=== PATIENT | female | born 1990 | race Caucasian/White ===

== ENCOUNTER → 2019-05-08 11:24 | Outpatient (CLI) | payer OTHER, SELFPAY ==
[2019-05-08 12:00] LABS: Add Manual Diff / Slide Review NO; Basophils Absolute Auto 100 /uL (0-100); Basophils Percent Auto 1.2 % (0-2); Eosinophils Absolute Auto 100 /uL (0-450); Eosinophils Percent Auto 1.2 % (2-4); Hematocrit 38.4 % (36-46); Hemoglobin 13.1 g/dL (12.0-16.0); Lymphocytes Absolute Auto 1700 /uL (1100-4500); Lymphocytes Percent Auto 26.8 % (25-40); Mean Corpuscular Hemoglobin 28.9 PG (26-34); Mean Corpuscular Volume 84.9 fL (80-100); Monocytes Absolute Auto 500 /uL (0-900); Neutrophils Absolute Auto 4000 /uL (1500-7000); Neutrophils Percent Auto 62.8 % (50-75); Platelet Count 262 X10^3/uL (150-400); Red Blood Cell Count 4.52 X10^6/uL (4.0-5.2); Red Cell Distribution Width 13.2 % (11.6-14.8); White Blood Cell Count 6.4 X10^3/uL (4.5-11.0)
[2019-05-08 12:16] LABS: Appearance Urine UA CLEAR; Bilirubin Urine UA NEGATIVE (NEGATIVE); Color Urine UA YELLOW; Glucose Urine UA NEGATIVE (Negative); Ketones Urine UA NEGATIVE (NEGATIVE); Leukocyte Esterase Urine UA NEGATIVE (NEGATIVE); Nitrite Urine UA NEGATIVE (Negative); Occult Blood Urine UA NEGATIVE (Negative); Protein Urine UA NEGATIVE (Negative); Urobilinogen Urine UA 0.2 E.U./dL (0.2)
[2019-05-08 13:57] LABS: HCG Quantitative /Beta subunit 167040 mIU/mL
[2019-05-08 15:15] LABS: Hepatitis B Surface Antigen NEGATIVE s/c (NEGATIVE)
[2019-05-08 15:33] LABS: HIV 1 & 2 Ab/Ag 4th Gen Combo NEGATIVE (NEGATIVE); Hep C Virus Ab w/Reflex Quant NEGATIVE s/c (NEGATIVE)
== END ==
PROVIDERS: Visit Provider Obstetrics & Gynecology
DX: N96 Recurrent pregnancy loss (principal); Z32.01 Encounter for pregnancy test, result positive; Z34.01 Encounter for supervision of normal first pregnancy, first trimester
CPT/HCPCS: 36415; 80055; 81003; 84702; 86787; 86803; 86850; 86900; 86901; 87086; 87389

== ENCOUNTER → 2019-07-04 11:03 | Outpatient (CLI) | payer OTHER, SELFPAY ==
[2019-07-10 10:53] LABS: AFP, Serum 46.3 ng/mL; Calc Gestational Age 15.9; Cigarette Smoker NO; Collection Date 102219; Donated Egg N; Donor Egg Age NOT GIVEN; Estriol, Free 0.64 ng/mL; Inhibin A, Dimeric 175 pg/mL; Maternal Weight 202 lbs; Number of Fetuses 1; Previous Pregnancy Down Syndro N; hCG, MoM 1.71; hCG, Serum 51.8 IU/mL
== END ==
PROVIDERS: Visit Provider Obstetrics & Gynecology
DX: Z34.82 Encounter for supervision of other normal pregnancy, second trimester (principal)
CPT/HCPCS: 36415; 82105; 82677; 84702; 86336

== ENCOUNTER → 2019-08-01 09:04 | Outpatient (CLI) | payer OTHER, SELFPAY ==
--- NOTE | 2019-08-01 09:06 | DI.US.S_ITS ---
PROCEDURE: US OB >= 14 WEEKS FETUS INDICATIONS: ANATOMY OUTSIDE/PRIOR DATING DATA: Last menstrual period (LMP): 03/14/19. LMP-based estimated date of delivery (GOLD): 12/19/19. First dating scan (date and location): 05/08/19. Estimated date of delivery (GOLD) from first dating scan: 12/20/19. TECHNIQUE: Real-time scanning was performed of the fetus, with image documentation and biometric measurements. COMPARISON: [facility], , OB >= 14 WEEKS FETUS, 07/04/2019, 10:53. FINDINGS: General: A single living intrauterine gestation is present. Presentation: Transverse Placenta: Placental position is anterior, without previa. Amniotic fluid index: 13.3 cm, normal range is 5-24 cm. heart rate: 144 beats per minute. Maternal cervical canal: 4.3 cm long. Normal lower limit is 2.5 cm. biometrics: Biparietal diameter: 20 weeks 3 days Head circumference: 20 weeks 3 days Abdominal circumference: 21 weeks 2 days Femur length: 20 weeks 2 days Estimated gestational age from initial scan: 19 weeks 6 days Composite gestational age from present scan: 20 weeks 4 days Estimated weight and percentile: 381 g; 92nd percentile Measurement variability for biometric dating: +/- 7 days from 14 weeks to 15 weeks 6 days gestation, +/- 10 days from 16 weeks to 21 weeks 6 days gestation, +/- 2 weeks from 22 weeks to 27 weeks 6 days gestation, +/- 3 weeks for 28 weeks gestation or later. weight reference: 4500 g or EFW >90/95% is considered macrosomia or large for gestational age. EFW <10% is small for gestational age. EFW 5% or less is considered intra-uterine growth restriction. Anatomic survey: Neuro: Ventricles are non-dilated at less than 10 mm. Cisterna magna is normal at 3-11 mm. Cerebellum is normal in size and morphology. Nuchal skin fold: Normal at less than 6 mm between 14-21 weeks gestational age. Face: Nose and lips, facial profile are normal. Spine: No evidence for spina bifida. Heart: 4-chambered heart is present, with normal ventricular outflow tracts. Diaphragm: Diaphragm is intact. Stomach: Left-sided stomach is present. Kidneys: No hydronephrosis. Normal is less than 5 mm in 2nd trimester, less than 7 mm in 3rd trimester. Cord: 3-vessel cord has orthotopic insertion. Bladder: Normal in size. Extremities: All 4 extremities identified. IMPRESSION: 1. Single living IUP redemonstrated and interval growth is upper limits of normal. 2. Normal anatomic survey. Dictated by: Nelson Santamaria [facility] Interpreted: Neville Julien MD on 08/02/2019 at 15:28 Approved by: Neville Julien M.D. on 08/02/2019 at 17:06
== END ==
PROVIDERS: Visit Provider Obstetrics & Gynecology
DX: Z36.89 Encounter for other specified antenatal screening (principal); Z3A.20 20 weeks gestation of pregnancy
CPT/HCPCS: 76811

== ENCOUNTER → 2019-08-29 12:56 | Outpatient (CLI) | payer OTHER, SELFPAY ==
[2019-08-29 14:39] LABS: Hematocrit 36.2 % (36-46); Hemoglobin 12.3 g/dL (12.0-16.0)
[2019-08-29 15:39] LABS: GTT (PREG) 1 Hour PP 50gm Dose 103 mg/dL (76-139)
== END ==
PROVIDERS: PCP Obstetrics & Gynecology; Visit Provider Obstetrics & Gynecology
DX: Z34.82 Encounter for supervision of other normal pregnancy, second trimester (principal)
CPT/HCPCS: 36415; 82950; 85014; 85018; 86850

== ENCOUNTER → 2019-11-24 10:41 | Outpatient (CLI) | payer OTHER, SELFPAY ==
--- NOTE | 2019-11-24 | DI.US.S_ITS ---
PROCEDURE: US OB LIMITED INDICATIONS: SIZE LARGER THAN DATES OUTSIDE/PRIOR DATING DATA: Last menstrual period (LMP): 03/14/19. LMP-based estimated date of delivery (GOLD): 12/19/19. First dating scan (date and location): 05/08/19. Estimated date of delivery (GOLD) from first dating scan: 12/20/19.. TECHNIQUE: Real-time scanning was performed of the fetus, with image documentation and biometric measurements. COMPARISON: [facility], [employer], 12/07/2012, 12:37. FINDINGS: General: A single living intrauterine gestation is present. Presentation: Vertex. Placenta: Placental position is anterior, without previa. Amniotic fluid index: 13.9 cm, normal range is 5-24 cm. heart rate: 149 beats per minute. Maternal cervical canal: Not well-seen. biometrics: Biparietal diameter: 35 weeks 5 days Head circumference: 36 weeks 1 day Abdominal circumference: 38 weeks 6 days Femur length: 38 weeks 6 days Estimated gestational age from initial scan: 36 weeks 2 days Composite gestational age from present scan: 37 weeks 3 days Estimated weight and percentile: 3404 g; 93rd percentile Measurement variability for biometric dating: +/- 7 days from 14 weeks to 15 weeks 6 days gestation, +/- 10 days from 16 weeks to 21 weeks 6 days gestation, +/- 2 weeks from 22 weeks to 27 weeks 6 days gestation, +/- 3 weeks for 28 weeks gestation or later. weight reference: 4500 g or EFW >90/95% is considered macrosomia or large for gestational age. EFW <10% is small for gestational age. EFW 5% or less is considered intra-uterine growth restriction. Other: Not applicable. IMPRESSION: Single living IUP redemonstrated and interval growth is greater than expected with estimated weight 93rd percentile. Recommend close clinical correlation to exclude macrosomia. Dictated by: Nelson Santamaria [facility] Interpreted: Geoff Escobar MD on 11/24/2019 at 11:59 Approved by: Geoff Escobar M.D. on 11/24/2019 at 16:19
== END ==
PROVIDERS: PCP Nurse Practitioner Obstetrics & Gynecology; Referring Provider Nurse Practitioner Obstetrics & Gynecology; Visit Provider Nurse Practitioner Obstetrics & Gynecology
DX: Z36.88 Encounter for antenatal screening for fetal macrosomia (principal); Z3A.37 37 weeks gestation of pregnancy
CPT/HCPCS: 76815

== ENCOUNTER → 2019-11-24 16:00 | Outpatient (ROUT) | payer OTHER, SELFPAY | PROVIDERS: Visit Provider Nurse Practitioner Obstetrics & Gynecology | DX: Z36.85 Encounter for antenatal screening for Streptococcus B (principal) | CPT/HCPCS: 87081 ==

== ENCOUNTER 2019-12-13 07:41 | Inpatient (IN) | payer OTHER, SELFPAY ==
[2019-12-13 08:54] LABS: Add Manual Diff / Slide Review NO; Basophils Absolute Auto 100 /uL (0-100); Basophils Percent Auto 0.6 % (0-2); Eosinophils Absolute Auto 100 /uL (0-450); Eosinophils Percent Auto 0.7 % (2-4); Hematocrit 37.3 % (36-46); Hemoglobin 12.6 g/dL (12.0-16.0); Lymphocytes Absolute Auto 1800 /uL (1100-4500); Mean Corpuscular HGB Conc 33.8 % (30-36); Mean Corpuscular Hemoglobin 29.2 PG (26-34); Mean Corpuscular Volume 86.4 fL (80-100); Monocytes Absolute Auto 600 /uL (0-900); Monocytes Percent Auto 6.6 % (3-14); Neutrophils Absolute Auto 6800 /uL (1500-7000); Neutrophils Percent Auto 73.1 % (50-75); Platelet Count 255 X10^3/uL (150-400); Red Blood Cell Count 4.32 X10^6/uL (4.0-5.2); White Blood Cell Count 9.3 X10^3/uL (4.5-11.0)
--- NOTE | 2019-12-13 09:21 | PM.OBHP.1 ---
OB HPI Date/Time Date of admission: 12/13/19 Date Patient Seen: 12/13/19 Time Patient Seen: 07:30 History of Present Condition Chief complaint: labor : 5 Para: 2 Estimated Date of Delivery: 12/20/19 Estimated Gestational Age (weeks): 39 Narrative: Jenny Baxter is a 29 year old female @ 39wks by 7wk US who presents for elective IOL. She has a history of a 9#11oz baby @ 39wks and is fearful of having a larger baby this time. EFW @ [id number]/93%. Uncomplicated PN care, transferred in from [facility] @ 31wks. Desires low intervention . present and supportive. Indications Indication for induction OB: other History of Present care: good care Dating criteria: based on 1st trimester US only Ultrasounds: normal mid trimester US Obstetrical complications: none Medical complications: none Preadmission Labs Blood type: 0 (-) negative -: Antibody screen: negative, GBS status: negative, HBsAG: negative, HIV: negative and RPR/VDLR: negative -: Chlamydia screen: not detected and Gonorrhea screen: not detected -: Rubella: immune HCT: 36.2 HCAB: reactive Quad screen: Normal 1 hr GTT: 103 Prior (ies) History: 05/26/13: NSVB @ [id number], female, 8#11oz, epidural, no complications 07/14/15: SAB @ 6wks 01/12/16: SAB @6wks, D&C needed after 6,months of bleeding 10/07/17: NSVB @ [id number], male, 9#11oz, epidural, no complications Evaluation Evaluation Laboratory results: Laboratory Tests 12/13/19 07:55 WBC 9.3 RBC 4.32 Hgb 12.6 Hct 37.3 MCV 86.4 MCH 29.2 MCHC 33.8 RDW 14.0 Plt Count 255 Neut % (Auto) 73.1 Lymph % (Auto) 19.0 L [place] % (Auto) 6.6 Eos % (Auto) 0.7 L Baso % (Auto) 0.6 Neut # (Auto) 6800 Lymph # (Auto) 1800 [place] # (Auto) 600 Eos # (Auto) 100 Baso # (Auto) 100 PFSH Surgical History History of third molar tooth extraction (Resolved) History of tonsillectomy (Resolved) Family History Father Cancer Mother Cancer Social History Smoking Status: Never smoker Meds Home Medications and Allergies Home Medications Medication Instructions Recorded Confirmed Type enoxaparin 40 mg/0.4 mL 40 mg SUBCUT DAILY #12 ml 04/26/19 04/28/19 Rx subcutaneous syringe prenat.vits,ismael,tku-zvkn-ayjzx 1 tab PO DAILY 04/28/19 04/28/19 History progesterone micronized 100 mg 1 insert VAG BID 04/28/19 04/28/19 History vaginal insert azithromycin 250 mg tablet See Rx Instructions PO .COMPLEX #6 07/07/19 Rx tab Allergies Allergy/AdvReac Type Severity Reaction Status Date / Time codeine [CODEINE] Allergy Intermediate rash Unverified 11/29/19 08:45 Review of Systems Review of Systems ROS: Yes All systems reviewed with the patient and are negative except as otherwise documented Exam Vital Signs (past 8 hours): BP121/56, MX57ads, T36.8C Temporal Speculum Exam - Cervix: normal appearance of the cervix and cervical os open OB/External & Speculum: cervical os open Manual OB Exam: dilated 2, effaced 75%, station high and other (soft, posterior) Uterus Location (Fundal Height): 41 Presentation: vertex Estimated Weight (lbs): 9 Objective Labs Result Diagrams: 12/13/19 07:55 Labs: Laboratory Results - last 24 hr 12/13/19 07:55 WBC 9.3 RBC 4.32 Hgb 12.6 Hct 37.3 MCV 86.4 MCH 29.2 MCHC 33.8 RDW 14.0 Plt Count 255 Neut % (Auto) 73.1 Lymph % (Auto) 19.0 L [place] % (Auto) 6.6 Eos % (Auto) 0.7 L Baso % (Auto) 0.6 Neut # (Auto) 6800 Lymph # (Auto) 1800 [place] # (Auto) 600 Eos # (Auto) 100 Baso # (Auto) 100 Assessment and Plan Assessment and Plan Assessment and Plan narrative: A: Term multipara, elective IOL, Rh negative, Obesity, likely LGA baby w/ proven pelvis to 9#11oz, Cat FHR P: Admit, routine orders w/ CBC & T&S, Franco balloon placed during exam, low dose pitocin ( no greater than 6mu/min) until Franco balloon is out. Labor support PRN. Will notify OB back-up of admit, status and POC. reassess after folwy balloon is out. Will consider AROM if station appropriate at that time. Time Spent with Patient Total time spent with greater than 50% in coordination of care (as documented) at patient's floor/unit and/or counseling patient:: Greater than 35 minutes
[2019-12-13] MEDS: LACTATED RINGERS 1,000 ML 125 ML IV ×2 (09:34→17:30)
[2019-12-13] MEDS: OXYTOCIN PREMIX 30 UNIT/500 ML PLAST..BAG IV (09:35)
[2019-12-13 09:47] VITALS: BP 124/63
--- NOTE | 2019-12-13 13:56 | PM.OBPNLAB ---
Date/Time Date Patient Seen: 12/13/19 Time Patient Seen: 13:05 Pain Control Pain control: tolerating well Comments: VSS, see OBIX. Franco Balloon out at 1150. Pt is feeling mild ctx, eager to be in active labor, open to AROM. Pelvic Exam Dilation (cm): 5 Effacement (%): 80 station: -2 Comments: AROM, moderate, clear Contractions Contractions on admission: none Monitor mode: External Pitocin rate (mU/min): 6 Contraction frequency (min): 3 Contraction duration (min): 1 Contraction pattern: Regular Contraction phase: Resting Contraction intensity: Mild Status status: Category l Heart Rate Baseline: 130 Monitor Accelerations: Present Monitor Decelerations: Absent Monitor Variability: Moderate Assessment and Plan Assessment: induction ongoing Plan: continuous present management Comments: Continue pitocin titration to adequate ctx pattern and strength. Reassess in 4 hours or sooner, PRN.
--- NOTE | 2019-12-13 17:24 | PM.OBPRVD ---
 Events: Labor Induction Labor & Delivery Delivery date: 12/13/19 Intrapartal events: None Cervical ripening method: per Franco bulb protocol Induction method: per pitocin protocol Delivery monitor: external FHT and external uterine Route of delivery: L&D Laceration Description: None Estimated blood loss (mL): 275 Anesthesia type: Epidural Narrative: Patient labored well, requested epidural at 9cm. Immediately after epidural placement, pt began to feel spontaneous urge to push ad was presumed to be complete. Coaching and encouragement led to NSVB of a viable baby boy in NOAH position with a single loose NC and NO additional maneuvers required for delivery of the shoulders, though the whole body was a tight fit and required pushing. was placed on maternal abdomen for drying and stimulation. Terminal meconium was noted. Cord was double clamped and cut and was taken to the warmer for minimal respiratory effort prior to 1 minutes. No NRP was needed as became vigorous on the way to the warmer. Apgars 6/9. Cord blood sample was collected. Gentle cord traction led to a spontaneous, Schultze delivery of an apparently intact placenta, membranes and 3VC. Fundus immediately form and bleeding minimal. Vagina and perineum inspected and intact. QBL 275mL. Both mother and baby stable and skin to skin as I left the room. [place] Baby 1: Infant gender: Male Presentation: vertex Placenta delivery description: Spontaneous cord vessel description: Nuchal Cord score (1 min): 6 score (5 min): 9 Plan for aftercare: Routine PP orders. Anticipate d/c to home in 18 hours.
--- NOTE | 2019-12-13 18:23 | PM.AN.REGBLK ---
Regional Block Pre-procedure Procedure: Continuous Lumbar Epidural for L&D Attending OB provider: Chloe Acosta PMH/ROS narrative: term labor, 9cm. No complications PSH/Anesthesia history narrative: reports near syncope, hypotension, bradycardia with previous epidurals requiring oxygen, repositioning. No emergent surgical intervention. ASA Class: II Labs: Hct 37.3 % (36-46) 12/13/19 07:55 Plt Count 255 X10^3/uL (150-400) 12/13/19 07:55 Medications: Current Medications Generic Name Dose Route Start Last Admin Trade Name Freq PRN Reason Stop Dose Admin Calcium Carbonate 1,000 mg 12/13/19 08:08 Tums PO Q2HR PRN Dyspepsia Diphenhydramine HCl 25 mg 12/13/19 15:50 Benadryl IV Q10M PRN Pruritis Fentanyl 100 mcg 12/13/19 08:08 Sublimaze IV Q1H PRN Pain, Severe (7-10) Lactated Ringer's 1,000 mls @ 125 mls/hr 12/13/19 08:15 12/13/19 09:34 Lactated Ringers IV 125 mls/hr CONT TEGAN Administration Oxytocin/Lactated Ringer's 30 unit in 500 mls @ 1 mls/hr 12/13/19 08:15 12/13/19 09:35 Oxytocin Premix IV 1 milliunit/min TITRATE TEGAN 1 mls/hr Administration Protocol 1 MILLIUNIT/MIN FENT 2MCG/ML BUPIV 0.125% EPI 200 mcg in 100 mls @ 6 mls/hr 12/13/19 16:00 Fentanyl/Bupiv/Ns 2mcg/Ml - 0.125% EPIDURAL CONT TEGAN Metoclopramide HCl 10 mg 12/13/19 08:08 Reglan IV NOW PRN Nausea And Vomiting Allergies: Allergies Allergy/AdvReac Type Severity Reaction Status Date / Time codeine [CODEINE] Allergy Intermediate rash Unverified 11/29/19 08:45 Procedure Insertion date: 12/13/19 Insertion time: 16:08 Prep/Local: betadine x3 Interspace: L3-4 Patient position: lateral Needle: 18 gauge Geovani (27g Pencan CSE, no med dose, clear CSF.) Loss of resistance with: saline CINDY at (cm): 7 Catheter placed at SKIN (cm): 12 Catheter in SPACE (cm): 5 Initial Medications TEST DOSE time: 16:09 TEST DOSE: 1.5% lidocaine with epinephrine 1:200k (mL): 3 BOLUS DOSE time: 16:10 BOLUS DOSE (mL): 5 BOLUS DOSE med: 0.25% bupivacaine Infusion Subsequent interventions: 5mL 0.25% bupiv at 1617 Post-procedure Anesthesia time START: 16:00 Anesthesia time END: 16:47 Post-procedure Anesthesia Assessment: Yes CV function: HR/BP stable, Yes Resp function: RR/sat/airway adequate, Yes Post-op hydration adequate, Yes Pain control adequate, Yes Nausea & vomiting absent and Yes Mental status appropriate
[2019-12-13] MEDS: KETOROLAC 30 MG/ML VIAL IV (20:01)
[2019-12-14] MEDS: KETOROLAC 30 MG/ML VIAL IV (05:00)
[2019-12-14] MEDS: PRENATAL VIT,CALC/IRON/FOLIC 1 TABLET 1 TAB PO (09:00)
[2019-12-14] MEDS: DOCUSATE 100 MG CAPSULE PO (09:00)
[2019-12-14] MEDS: ACETAMINOPHEN 325 MG TABLET 650 MG PO (09:00)
--- NOTE | 2019-12-14 10:09 | PM.OBDS.1 ---
Discharge Providers Provider Date of admission: 12/13/19 07:41 Discharge Date: 12/14/19 Primary care physician: Chloe Acosta CNM Consults: 12/14/19 17:20 Consult to [employer] Routine Comment: Discharge provider: Chloe Acosta CNM Summary Hospital Course Date Patient Seen: 12/14/19 Time Patient Seen: 10:15 Procedures: Routine care overnight without complications. Voiding and ambulating independently. Pain well controlled. had frenotomy this morning, is able to breastfeed indepentently. Has chosen to suppplement w/ formula until her milk comes in. Tolerating general diet. Eager for discharge to home. Peripartum Data Infant Delivery Method: Natural Vaginal Laceration description: None Procedures: epidural placed immediately prior to second stage complications: none 1: Gender: Male Disposition of : home Discharge Diagnosis (1) Encounter for full-term uncomplicated delivery: Start Date: 12/13/19 Start Time: 07:00 Status: Acute Problem Details: Routine course Status at Discharge Cognitive/behavioral status at discharge: oriented Functional status at discharge: independent ambulation Overall status at discharge: patient is progressing back to baseline Time Spent with Patient Time attestation: Total time spent providing and/or coordinating discharge services: Time spent: Less than 30 minutes Objective Labs Result Diagrams: 12/13/19 07:55 Labs: Laboratory Results - last 24 hr 12/14/19 06:20 Maternal Bleed Negative Exam Vital Signs (past 8 hours): BP 103/58, HR64, RR17, T98.4F Temporal Other: Fundus firm @ U, lochia light, no clots Psych Appearance: grossly normal and well kempt Affect: normal affect Discharge Plan Discharge Plan Patient Disposition: Home Discharge orders & Medications Prescriptions: New docusate sodium [Col-Rite] 100 mg capsule 100 mg PO BID 14 Days Qty: 28 RF: 0 acetaminophen 325 mg capsule 650 mg PO Q6H PRN (Reason: fever or pain) 14 Days Qty: 60 RF: 3 ibuprofen 600 mg Tablet 600 mg PO Q6HR PRN (Reason: Pain, Mild (1-3)) 14 Days Qty: 60 RF: 2 Continued prenat.vits,ismale,yzg-srtk-zrzcs tablet 1 tab PO DAILY RF: 0 Discontinued enoxaparin 40 mg/0.4 mL syringe 40 mg SUBCUT DAILY Qty: 12 RF: 6 azithromycin [Zithromax Z-Haris] 250 mg tablet See Rx Instructions PO .COMPLEX Qty: 6 RF: 0 progesterone micronized 100 mg insert 1 insert VAG BID RF: 0 Follow up/Referrals: Chloe Acosta CNM [Primary Care Provider] - (Follow-up by telehealth @ 2 weeks and in office at 6 weeks ) Diet/Activity/Treatments Diet: Regular Activity: pelvic rest x6 weeks Skin/Wound/Dressing Care Report to your healthcare provider any signs of infection, such as:: chills, fever, increased pain and unusual drainage Visit Report/Discharge Packet Instructions: DI for Depression Discharge Data Primary Care Provider: Chloe Acosta
[2019-12-14 10:25] VITALS: BP 103/58; PULSE 64; RESP 17; TEMP 36.9
[2019-12-14] MEDS: RHO(D) IMMUNE GLOBULIN 1,500 UNIT SYRINGE 1500 UNIT IM (10:36)
== END 2019-12-14 11:00 | disposition home or self-care (01) | DRG 807 ==
PROVIDERS: Admitting Provider Nurse Practitioner Obstetrics & Gynecology; PCP Nurse Practitioner Obstetrics & Gynecology; Referring Provider Nurse Practitioner Obstetrics & Gynecology; Visit Provider Nurse Practitioner Obstetrics & Gynecology
DX: O77.0 Labor and delivery complicated by meconium in amniotic fluid (principal); E66.9 Obesity, unspecified; Z37.0 Single live birth; Z3A.39 39 weeks gestation of pregnancy; O69.81X0 Labor and delivery complicated by cord around neck, without compression, not applicable or unspecified
CPT/HCPCS: 01967; 36415; 59050; 85025; 85461; 86850; 86900; 86901; G0379; J1885; J2590; J2790

== ENCOUNTER → 2021-12-08 13:23 | Outpatient (CLI) | payer OTHER, SELFPAY ==
--- NOTE | 2021-12-08 | DI.MG.S_ITS ---
BILATERAL DIGITAL DIAGNOSTIC MAMMOGRAM 3D/2D: 12/08/2021 CLINICAL: Baseline Lump in left axilla. No prior exams were available for comparison. The tissue of both breasts is extremely dense, which lowers the sensitivity of mammography. No significant masses, calcifications, or other findings are seen in either breast. IMPRESSION: INCOMPLETE: NEEDS ADDITIONAL IMAGING EVALUATION Normal mammogram. An ultrasound of the reportedly palpable axillary finding will be performed next. This exam was interpreted at Station ID: [id number]. NOTE: For mammograms, a report in lay terms will be sent to the patient. Approximately 15% of breast malignancies will not be visualized mammographically. In the management of a palpable breast mass, a negative mammogram must not discourage biopsy of a clinically suspicious lesion. Electronically Signed By: Lalit Mann M.D. jr/:12/08/2021 15:12:53 ACR BI-RADS Category 0: Incomplete [id number]
--- NOTE | 2021-12-08 | DI.US.S_ITS ---
PROCEDURE: US AXILLARY ONLY LT COMPARISON: None. INDICATIONS: LUMP IN LEFT AXILLA FINDINGS: IMPRESSION: Dictated by: Lalit Mann M.D. on 12/08/2021 at 14:37 Approved by: Lalit Mann M.D. on 12/08/2021 at 14:38
--- NOTE | 2021-12-08 14:16 | DI.US.S_ITS ---
Attending Physician: Dawit Indications: Date: 12/08/2021 14:27 At the request of: RICKIE HEDRICK Procedure: US axillary only lt ULTRASOUND OF LEFT BREAST AND AXILLA: 12/08/2021 CLINICAL: Palpable left axilla lump. Comparison is made to exam dated: 12/08/2021 mammogram - [facility]. Color flow and real-time ultrasound of the left breast axilla were performed. Vo scale images of the real-time examination were reviewed. There are several a benign-appearing left axillary lymph node with circumscribed margins and fatty jayson. No significant abnormalities were seen sonographically in the left axilla. IMPRESSION: NEGATIVE There is no sonographic evidence of malignancy. Multiple left axillary lymph nodes are benign in appearance. This exam was interpreted at Station ID: [id number]. Electronically Signed By: Lalit Mann M.D. jr/:12/08/2021 15:14:34 letter sent: Normal Exam Ultrasound BI-RADS: 1 Negative
== END ==
PROVIDERS: PCP Nurse Practitioner Obstetrics & Gynecology; Referring Provider Nurse Practitioner Family; Visit Provider Nurse Practitioner Family
DX: R92.8 Other abnormal and inconclusive findings on diagnostic imaging of breast; N63.32 Unspecified lump in axillary tail of the left breast; R59.0 Localized enlarged lymph nodes
CPT/HCPCS: 76882; 77066; G0279

== ENCOUNTER → 2022-11-24 17:17 | Outpatient (CLI) | payer OTHER, SELFPAY ==
--- NOTE | 2022-11-24 17:22 | DI.RAD.S_ITS ---
PROCEDURE: XR CHEST 2V INDICATIONS: Cough 3+ weeks, SHOB, fatigue, night sweats, COVID 3 wk ago TECHNIQUE: 2 views of the chest were acquired. COMPARISON: None. FINDINGS: Surgical changes and devices: None. Lungs and pleura: Lungs are clear. No pleural effusions or pneumothorax. Mediastinum: Mediastinal contours are normal. Heart size is normal. Bones and chest wall: No suspicious bony abnormalities. Soft tissues appear unremarkable. IMPRESSION: No acute cardiopulmonary process demonstrated radiographically. Dictated by: Lalit Mann M.D. on 11/24/2022 at 17:56 Approved by: Lalit Mann M.D. on 11/24/2022 at 17:57
== END ==
PROVIDERS: PCP Registered Nurse Diabetes Educator; Referring Provider Student in an Organized Health Care Education/Training Program; Visit Provider Student in an Organized Health Care Education/Training Program
DX: R05.8 Other specified cough (principal); R61 Generalized hyperhidrosis
CPT/HCPCS: 71046

== ENCOUNTER → 2025-02-19 07:37 | Outpatient (CLI) | payer OTHER, SELFPAY ==
--- NOTE | 2025-02-19 07:38 | DI.CT.S_ITS ---
PROCEDURE: CT SINUS SCREEN WO CON INDICATIONS: chronic headaches, recurrent sinusitis TECHNIQUE: Noncontrast 3.0 mm axial images acquired from the frontal sinuses to the mid- sella, with coronal and sagittal reformats. For radiation dose reduction, the following was used: automated exposure control, adjustment of mA and/or kV according to patient size. COMPARISON: None. FINDINGS: Image quality: Excellent. Maxillary Sinuses: No bony remodeling or destruction. Sinuses are clear. Ethmoid Air Cells: No bony remodeling or destruction. Sinuses are clear. Sphenoid Sinuses: No bony remodeling or destruction. Sinuses are clear. Frontal Sinuses: No bony remodeling or destruction. Sinuses are clear. Ostiomeatal Complexes: Ostiomeatal complexes are patent. No Gerald cells. Miscellaneous: Visualized intra-orbital contents are normal. No cynthia bullosa or paradoxical turbinate curvature. No nasal septal deviation. IMPRESSION: Normal CT sinus Approved by: Austin Mcconnell M.D. on 02/19/2025 at 15:21
== END ==
PROVIDERS: PCP Family Medicine; Referring Provider Family Medicine; Visit Provider Family Medicine
DX: J32.9 Chronic sinusitis, unspecified (principal); R51.9 Headache, unspecified
CPT/HCPCS: 70486